=== PATIENT | female | born 1995 | race American Indian/Alaskan Native ===

== ENCOUNTER 2021-09-24 00:35 | Outpatient (CLI) | payer OTHER | END 2021-09-24 02:15 | disposition home or self-care (01) | LOC: TRG 00:35 → APU 00:38 → TRG 02:15 | PROVIDERS: ATTEND Obstetrics & Gynecology | DX: O36.8120 Decreased fetal movements, second trimester, not applicable or unspecified (principal); Z3A.26 26 weeks gestation of pregnancy | CPT/HCPCS: 59025 ==

== ENCOUNTER 2021-11-03 02:25 | Outpatient (CLI) | payer OTHER ==
[2021-11-03 02:46] VITALS: BP 101/63
[2021-11-03] MEDS ORDERED: LACTATED RINGERS 500 ML IV ONE (03:15)
== END 2021-11-03 03:41 | disposition home or self-care (01) ==
LOC: TRG 02:25 → APU 02:26 → TRG 03:41
PROVIDERS: ATTEND Obstetrics & Gynecology
DX: O24.419 Gestational diabetes mellitus in pregnancy, unspecified control (principal); Z3A.32 32 weeks gestation of pregnancy
CPT/HCPCS: 59025